=== PATIENT | female | born 1965 | race Caucasian/White ===

== ENCOUNTER 2019-04-27 06:51 | Emergency (ER) | payer OTHER ==
[~2019-04-27] VITALS: Wt 70.0 kg
[2019-04-27 06:56] VITALS: Wt 70.0 kg
[2019-04-27] MEDS ORDERED: SOD CHLORIDE 0.9% 500 ML IV STA (07:04)
[2019-04-27] MEDS ORDERED: ONDANSETRON 4 MG INJ IV STA (07:04)
[2019-04-27] MEDS ORDERED: DIPHENHYDRAMINE 50 MG INJ IV STA (07:04)
[2019-04-27] MEDS ORDERED: ONDA4TAB8 PO (08:19)
[2019-04-27] MEDS ORDERED: MECL12.574 PO (08:19)
--- NOTE | 2019-04-27 08:22 | ERD ---
ER Documentation Chief Complaint Chief Complaint DIZZINESS SINCE THIS MORNING WITH VOMITING HPI 53-year-old female presents to the emergency department complaining of dizziness. Patient states that she was in her normal state of health until this morning at which time she awoke with acute episode of vertigo. She reports severe vertigo associated with nausea and nonbilious, nonbloody emesis. She reports no headache, she reports no focal weakness or numbness. She reports no ringing in her ears, fevers, chills or other complaints. ROS All systems reviewed and are negative except as per history of present illness. Medications Home Meds Active Scripts Ondansetron Hcl* (Zofran*) 4 Mg Tablet, 4 MG PO Q8H PRN for NAUSEA AND/OR VOMITING, #30 TAB Prov:BRANDIE PEREA 04/27/19 Meclizine Hcl* (Antivert*) 12.5 Mg Tab, 12.5 MG PO Q6H PRN for DIZZINESS, #20 TAB Prov:BRANDIE PEREA 04/27/19 Allergies Allergies: Coded Allergies: No Known Allergy (Unverified , 04/27/19) PMhx/Soc Medical and Surgical Hx: pt denies Medical Hx, pt denies Surgical Hx Hx Alcohol Use: No Hx Substance Use: No Hx Tobacco Use: No Smoking Status: Unknown if ever smoked FmHx Noncontributory for chief complaint Physical Exam Vitals Vital Signs Date Temp Pulse Resp B/P (MAP) Pulse Ox O2 O2 Flow FiO2 Time Delivery Rate 04/27/19 98.0 69 18 118/57 99 06:56 (77) Physical Exam GENERAL: The patient is well developed and appropriate for usual state of health in no apparent distress HEENT: Pupils equal, round, and reactive to light. EOMI. There is no scleral icterus. NECK: C-spine is soft and supple, there is no meningismus. There is no cervical lymphadenopathy. LUNGS: Clear to auscultation bilaterally. There are no rales, wheezes or rhonchi. HEART: Regular rate and rhythm, no murmurs, clicks, rubs or gallops. ABDOMEN: Soft, non-tender, non-distended. There are bowel sounds in all four quadrants. No rebound or guarding. EXTREMITIES: There is no peripheral cyanosis or edema. No focal swelling or erythema. NEURO: The patient moves all four extremities with 5/5 strength. Cranial nerves II - XII are intact. Patient has significant lateral nystagmus bilaterally. No rotational or vertical nystagmus. Normal gait. Alert and oriented. [id number] is normal bilaterally. SKIN: There is no apparent rash or petechiae. HEME/LYMPHATIC: There is no evidence of excessive bruising or lymphedema. PSYCHIATRIC: The patient does not appear anxious or depressed. Result Diagram: 04/27/19 0710 04/27/19 07 Results 24 hrs Laboratory Tests Test 04/27/19 07:10 White Blood Count 6.1 10^3/ul Red Blood Count 4.33 10^6/ul Hemoglobin 14.0 g/dl Hematocrit 40.8 % Mean Corpuscular Volume 94.2 fl Mean Corpuscular Hemoglobin 32.3 pg Mean Corpuscular Hemoglobin Concent 34.3 g/dl Red Cell Distribution Width 12.3 % Platelet Count 223 10^3/UL Mean Platelet Volume 10.7 fl Immature Granulocytes % 0.300 % Neutrophils % 29.4 % Lymphocytes % 59.7 % Monocytes % 7.5 % Eosinophils % 2.3 % Basophils % 0.8 % Nucleated Red Blood Cells % 0.0 /100WBC Immature Granulocytes # 0.020 10^3/ul Neutrophils # 1.8 10^3/ul Lymphocytes # 3.7 10^3/ul Monocytes # 0.5 10^3/ul Eosinophils # 0.1 10^3/ul Basophils # 0.1 10^3/ul Nucleated Red Blood Cells # 0.0 10^3/ul Sodium Level 140 mmol/L Potassium Level 4.1 mmol/L Chloride Level 109 mmol/L Carbon Dioxide Level 24 mmol/L Anion Gap 7 Blood Urea Nitrogen 19 mg/dl Creatinine 0.63 mg/dl Est Glomerular Filtrat Rate mL/min > 60 mL/min Glucose Level 152 mg/dl Calcium Level 9.7 mg/dl Current Medications Medications Dose Sig/Julio César Start Time Status Last (Trade) Ordered Route PRN Stop Time Admin Dose Reason Admin Sodium 500 ml @ Q1H STAT 04/27/19 DC 04/27/19 Chloride 500 mls/hr IV 07:04 04/27/19 07:20 08:03 Ondansetron 4 mg ONCE STAT 04/27/19 DC 04/27/19 HCl (Zofran IV 07:04 04/27/19 07:19 Inj) 07:06 25 mg ONCE STAT 04/27/19 DC 04/27/19 Diphenhydrami IV 07:04 04/27/19 07:19 ne HCl 07:06 (Benadryl) Procedures/MDM Patient was taken to a room, seen and evaluated. Comfort measures were initiated. Diagnostic tests were ordered and reviewed. 3 LEAD RHYTHM STRIP: Normal sinus rhythm without ectopy EK lead EKG reviewed by myself: Normal Sinus Rhythm Normal [place] and intervals No ST elevation, depression, or T wave inversion Impression: Normal EKG RADIOLOGY: Reviewed with the radiologist REEVALUATION: 08: Diagnostic tests were appreciated. Symptoms seem to improve significantly. Nystagmus was improved. She remained neurologically normal. MEDICAL DECISION MAKIN-year-old female presents with vertigo. At this time, she has resolved symptomatically. She has no clinical evidence of stroke or central vertigo. Patient also has no evidence of this being cardiac, electrolyte or other concerns causing the symptoms. Overall, she is clinically well and now improved and appropriate for discharge. Departure Diagnosis: Primary Impression: Vertigo Condition: Stable Patient Instructions: Vertigo, Unspecified Additional Instructions: See your doctor for follow-up as discussed. Take a copy of your test results, if appropriate, to this follow-up visit. See your doctor or return here if your symptoms do not improve as expected. At any time, please return to the emergency department for any change or worsening in her symptoms. BRANDIE PEREA Apr 27, 2019 08:22
[2019-04-27 08:28] VITALS: BP 140/68; PULSE 68; RESP 18
== END 2019-04-27 08:56 | disposition home or self-care (01) ==
LOC: E/R 06:51
DX: R42 Dizziness and giddiness (principal); R11.2 Nausea with vomiting, unspecified
CPT/HCPCS: 36415; 70450; 80048; 85025; 93005; 96374; 96375; J1200; J2405; J7040; Z7502